=== PATIENT | female | born 1950 | race Caucasian/White ===

== ENCOUNTER → 2016-09-09 | Outpatient (CLI) | payer MEDICARE ==
[~2016-09-09] MED LIST: SM A81CH CHEW; TAB-TAB PO; TOPR25TA2 PO
[2016-09-09 09:02] LABS: HEMATOCRIT 47.3 % (35.0-46.0); MEAN CELL VOLUME 91.9 FL (80.0-100.0); MEAN CORPUSCULAR HEMOGLOBIN 31.9 PG (27.0-34.0); MEAN CORPUSCULAR HGB CONC 34.7 % (32.0-36.0); PLATELET COUNT 299 TH/MM3 (150-450); RED BLOOD COUNT 5.14 MIL/MM3 (4.00-5.30); RED CELL DISTRIBUTION WIDTH 14.1 % (11.6-17.2); REVIEW FLAG FINAL; WHITE BLOOD COUNT 7.3 TH/MM3 (4.0-11.0)
[2016-09-09 09:30] LABS: ALKALINE PHOSPHATASE 80 U/L (45-117); ALT (GPT) 31 U/L (10-53); ANION GAP 5 MEQ/L (5-15); AST (GOT) 36 U/L (15-37); BICARBONATE 30.1 MEQ/L (21.0-32.0); BLOOD UREA NITROGEN 19 MG/DL (7-18); CHLORIDE 98 MEQ/L (98-107); GLOMERULAR FILTRATION RATE 79 ML/MIN (>89); GLUCOSE,FASTING 98 MG/DL (74-99); HDL CHOLESTEROL 79.4 MG/DL (40.0-60.0); LDL CHOLESTEROL 155 MG/DL (0-99); SODIUM (NA) 133 MEQ/L (136-145); TOTAL BILIRUBIN ADULT 0.5 MG/DL (0.2-1.0)
== END ==
LOC: CLAB 08:23
PROVIDERS: ATTEND Internal Medicine Interventional Cardiology
DX: I48.0 Paroxysmal atrial fibrillation (principal); I45.2 Bifascicular block; I34.1 Nonrheumatic mitral (valve) prolapse; I34.0 Nonrheumatic mitral (valve) insufficiency
CPT/HCPCS: 36415; 80053; 80061; 85027

== ENCOUNTER → 2017-09-29 | Outpatient (CLI) | payer MEDICARE ==
[2017-09-29 07:39] LABS: HEMATOCRIT 52.2 % (35.0-46.0); HEMOGLOBIN 17.5 GM/DL (11.6-15.3); MEAN CELL VOLUME 95.3 FL (80.0-100.0); MEAN CORPUSCULAR HGB CONC 33.5 % (32.0-36.0); MEAN PLATELET VOLUME 8.3 FL (7.0-11.0); PLATELET COUNT 230 TH/MM3 (150-450); RED BLOOD COUNT 5.47 MIL/MM3 (4.00-5.30); RED CELL DISTRIBUTION WIDTH 14.5 % (11.6-17.2); WHITE BLOOD COUNT 7.4 TH/MM3 (4.0-11.0)
[2017-09-29 08:00] LABS: ALBUMIN 4.1 GM/DL (3.4-5.0); AST (GOT) 28 U/L (15-37); BICARBONATE 27.9 MEQ/L (21.0-32.0); BLOOD UREA NITROGEN 24 MG/DL (7-18); CALCIUM 9.1 MG/DL (8.5-10.1); CHLORIDE 105 MEQ/L (98-107); CREATININE 0.78 MG/DL (0.50-1.00); GLOMERULAR FILTRATION RATE 74 ML/MIN (>89); GLUCOSE,FASTING 99 MG/DL (74-99); SODIUM (NA) 138 MEQ/L (136-145)
[2017-09-29 08:02] LABS: CHOLESTEROL 214 MG/DL (120-200); TRIGLYCERIDES 62 MG/DL (42-150)
[2017-09-29 08:13] LABS: ALKALINE PHOSPHATASE 78 U/L (45-117); ALT (GPT) 29 U/L (10-53); HDL CHOLESTEROL 59.4 MG/DL (40.0-60.0); LDL CHOLESTEROL 142 MG/DL (0-99); TOTAL BILIRUBIN ADULT 0.4 MG/DL (0.2-1.0); TOTAL PROTEIN 7.6 GM/DL (6.4-8.2)
== END ==
LOC: CLAB 06:50
PROVIDERS: ATTEND Internal Medicine Interventional Cardiology
DX: R53.83 Other fatigue (principal); I48.0 Paroxysmal atrial fibrillation; E78.00 Pure hypercholesterolemia, unspecified; I45.10 Unspecified right bundle-branch block; I34.0 Nonrheumatic mitral (valve) insufficiency; Z79.899 Other long term (current) drug therapy
CPT/HCPCS: 36415; 80053; 80061; 84443; 85027

== ENCOUNTER 2017-12-05 12:00 | Day surgery (SDC) | payer MEDICARE ==
[2017-12-05] MEDS ORDERED: SODIUM CHLORID 0.9% 500 ML IV PRN (13:30)
[2017-12-05] MEDS ORDERED: LACTATED RINGER'S 1000 ML IV PRN (13:30)
[2017-12-05] MEDS ORDERED: POVIDONE IODINE 5% (ANTISEPSIS KIT) 4 APPLICATIONS EACH NARE PRN (13:30)
[2017-12-05] MEDS ORDERED: METOPROLOL TARTRATE 25 MG TAB PO PRN (13:30)
[2017-12-05] MEDS ORDERED: CHLORHEXIDINE GLUCONATE 2 % 1 PACK (2 CLOTHS) TOPICAL PRN (13:30)
[2017-12-05] MEDS ORDERED: METO50TA PO (14:24)
[2017-12-05] MEDS ORDERED: FLUT1SPR5 EACH NARE (14:24)
[2017-12-05] MEDS ORDERED: VITA250C3 CHEW (14:24)
[2017-12-05] MEDS ORDERED: VITACAP7 PO (14:24)
[2017-12-05] MEDS ORDERED: MULTTAB67 PO (14:24)
[2017-12-05] MEDS ORDERED: VITA100064 PO (14:24)
[2017-12-05] MEDS ORDERED: XARE20TA PO (14:24)
--- NOTE | 2017-12-06 16:24 | EKG ---
Date Performed: 12/05/2017 Time Performed: 13:28:06 PTAGE: 67 years EKG: Atrial fibrillation. Left axis deviation RBBB with left anterior fascicular block Left vent ricular hypertrophy Inferior/lateral ST-T changes are probably due to ventricular hypertrophy when co mpared to prior EKG,patient is now in atrial fibrillation Abnormal ECG PREVIOUS TRACING ;06/28/2013@ 07.13 DOCTOR: Gela Ching Interpretating Date/Time 12/06/2017 16:24:03
--- NOTE | 2017-12-06 16:26 | EKG ---
Date Performed: 12/05/2017 Time Performed: 14:20:20 PTAGE: 67 years EKG: Sinus bradycardia with PAC(s). Left axis deviation RBBB with left anterior fascicular block Left ventricular hypertrophy Inferior/lateral ST-T changes are probably due to ventricular hypertrop hy when compared to prior EKG, patient has coverted from atrial fibrillation to sinus bradycardia Abn ormal ECG PREVIOUS TRACING : 12/05/2017 13.28 DOCTOR: Gela Ching Interpretating Date/Time 12/06/2017 16:25:09
== END 2017-12-05 14:48 | disposition home or self-care (01) ==
LOC: HDOC 12:00 → HDIC 12:01 → HDOC 14:48
PROVIDERS: ATTEND Internal Medicine Interventional Cardiology
DX: I48.1 Persistent atrial fibrillation (principal); I10 Essential (primary) hypertension; R94.31 Abnormal electrocardiogram [ECG] [EKG]; Z79.01 Long term (current) use of anticoagulants
CPT/HCPCS: 92960; 93005